=== PATIENT | female | born 1990 | race African-American/Black ===

== ENCOUNTER 2018-03-10 20:25 | Emergency (ER) | payer BC, OTHER ==
[2018-03-10 20:35] VITALS: BP 136/96; PULSE 95; TEMP 99; BMI 34.0
--- NOTE | 2018-03-10 23:47 | PDOC ---
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 Patient states she has a pleuritic midsternal nonradiating intermittent chest discomfort for the past 6 weeks described as 3/10 achy nonradiating intermittent discomfort which is exacerbated on deep inspiration and touch. The pain is alleviated at rest. Patient denies nausea, vomiting, fever/chills, extremity numbness or tingling sensation, shortness of breath, back pain, neck pains, abdominal discomfort. Patient also complains of close bumpy sores to the back of her tongue with pain intermittently x5d. Her last complaint is malodorous, pruritic vaginal discharge x2d. Patient states she is sexually active with 5 different men presently and wishes to get tested for gonorrhea/chlamydia. Patient was informed the urine GC chlamydia does not results until 3-4 days from now and she can get treated with Rocephin and Zithromax but refused. Otherwise patient denies headache, dizziness, lightheadedness, visual disturbance, dental pain. Past History - Past Medical History Allergies/Adverse Reactions: Allergies Allergy/AdvReac Type Severity Reaction Status Date / Time No Known Allergies Allergy Verified 03/10/18 20:29 Home Medications: Ambulatory Orders Mag Hydrox/Alh/Smc/Dpha/Lido [Magic Mouthwash *Sjr Formula* -] 5 ml MM Q6HPO # 60 mouthwash 03/11/18 metroNIDAZOLE 0.75% VAG. GEL [Metrogel 0.75% *Vaginal Gel* -] 1 applic VG HS #1 tube 03/11/18 - Suicide/Smoking/Psychosocial Hx Smoking History: Current some day smoker Have you smoked in the past 12 months: Yes Number of Cigarettes Smoked Daily: 2 Information on smoking cessation initiated: No Hx Alcohol Use: No Drug/Substance Use Hx: No Review of Systems - Review of Systems Able to Perform ROS?: Yes Comments:: 03/11/18 02:26 CONSTITUTIONAL: Absent: fever, chills, diaphoresis, generalized weakness, malaise, loss of appetite HEENT: +sores to tongue Absent: rhinorrhea, nasal congestion, throat pain, throat swelling, difficulty swallowing, mouth swelling, ear pain, eye pain, visual Changes CARDIOVASCULAR: Absent: chest pain, loss of consciousness, palpitations, irregular heart rate, peripheral edema RESPIRATORY: Absent: cough, shortness of breath, dyspnea with exertion, orthopnea, wheezing, stridor, hemoptysis GASTROINTESTINAL: Absent: abdominal pain, abdominal distension, nausea, vomiting, diarrhea, constipation, melena, hematochezia GENITOURINARY: Absent: dysuria, frequency, urgency, hesitancy, hematuria, flank pain, genital pain MUSCULOSKELETAL: Absent: myalgia, arthralgia, joint swelling SKIN: Absent: rash, itching, pallor HEMATOLOGIC/IMMUNOLOGIC: Absent: easy bleeding, easy bruising, lymphadenopathy, frequent infections ENDOCRINE: Absent: unexplained weight gain, unexplained weight loss, heat intolerance, cold intolerance NEUROLOGIC: Absent: headache, focal weakness or paresthesias, dizziness, unsteady gait, seizure, mental status changes, bladder or bowel incontinence PSYCHIATRIC: Absent: anxiety, depression, suicidal or homicidal ideation, hallucinations. Pelvic: External genitalia normal without lesions. Vaginal vault thin/grayish white/malodorous discharge Cervix is long and closed. No cervical motion tenderness. Uterus is nontender and normal in size. Adnexa are nontender and without masses. Is the patient limited Azeri proficient: No *Physical Exam - Vital Signs Last Vital Signs Temp Pulse Resp BP Pulse Ox 99.0 F 95 H 18 136/96 100 03/10/18 20:29 03/10/18 20:29 03/10/18 20:29 03/10/18 20:29 03/10/18 20:29 ED Treatment Course - LABORATORY CBC & Chemistry Diagram: 03/10/18 23:47 03/10/18 23:47 - ADDITIONAL ORDERS Additional order review: Laboratory Results 03/10/18 03/10/18 03/10/18 23:57 23:47 23:47 Sodium 140 Potassium 4.4 Chloride 102 Carbon Dioxide 30 Anion Gap 8 BUN 13 Creatinine 0.9 Creat Clearance w eGFR > 60 Random Glucose 85 Calcium 9.2 Total Bilirubin 0.3 D AST 23 ALT 23 Alkaline Phosphatase 68 Creatine Kinase 254 H Troponin I < 0.02 Total Protein 7.4 Albumin 4.3 Urine Color Yellow Urine Appearance Clear Urine pH 5.0 Ur Specific [place] 1.028 Urine Protein Negative Urine Glucose (UA) Negative Urine Ketones Negative Urine Blood Negative Urine Nitrite Negative Urine Bilirubin Negative Urine Urobilinogen 2.0 H Ur Leukocyte Esterase Negative Urine HCG, Qual Negative 03/10/18 23:47 RBC 4.48 MCV 88.9 MCHC 33.9 RDW 12.6 MPV 7.4 L Neutrophils % 61.0 Lymphocytes % 24.6 Monocytes % 10.2 Eosinophils % 3.9 Basophils % 0.3 *DC/Admit/Observation/Transfer Diagnosis at time of Disposition: Atypical chest pain, Bacterial vaginosis, Sore in mouth - Discharge Dispostion Disposition: HOME Condition at time of disposition: Stable Admit: No - Prescriptions Prescriptions: Mag Hydrox/Alh/Smc/Dpha/Lido [Magic Mouthwash *Sjr Formula* -] 5 ml MM Q6HPO # 60 mouthwash metroNIDAZOLE 0.75% VAG. GEL [Metrogel 0.75% *Vaginal Gel* -] 1 applic VG HS #1 tube - Referrals Referrals: Jose Spence MD [Staff Physician] - Najma Morton MD [Staff Physician] - Harvinder Haley MD [Staff Physician] - - Patient Instructions Printed Discharge Instructions: DI for Bacterial Vaginosis Additional Instructions: Follow-up with the foundation stage teacher for the chest discomfort/ Dr. Spence Follow-up with infectious disease for the sores in your mouth/ Dr. Haley Follow-up with the qa manager/Dr. Rice Rx: Magic mouthwash 5 mL's every 6 hours Rx: Vaginal MetroGel as prescribed Return back to the emergency department for severe/persistent or worsening symptoms - Post Discharge Activity
[2018-03-11 00:27] LABS: BASO % 0.3 % (0-2.0); EOS % 3.9 % (0-4.5); HEMATOCRIT 39.8 % (32.4-45.2); HEMOGLOBIN 13.5 GM/dL (10.7-15.3); LYMPH % 24.6 % (8-40); MCH 30.2 pg (25.7-33.7); MCHC 33.9 g/dl (32.0-36.0); MEAN CELL VOLUME 88.9 fl (80-96); MEAN PLT VOLUME 7.4 fl (7.5-11.1); MONO % 10.2 % (3.8-10.2); PLATELET COUNT 272 K/MM3 (134-434); RBC 4.48 M/mm3 (3.60-5.2); RDW 12.6 % (11.6-15.6); WHITE BLOOD COUNT 8.5 K/mm3 (4.0-10.0)
[2018-03-11 00:46] LABS: URINE APPEARANCE CLEAR; URINE BILIRUBIN NEGATIVE (<2.0 mg/dL); URINE BLOOD NEGATIVE (NEGATIVE); URINE COLOR YELLOW; URINE GLUCOSE (UA) NEGATIVE (NEGATIVE); URINE KETONE NEGATIVE (NEGATIVE); URINE LEUK ESTERASE NEGATIVE (NEGATIVE); URINE NITRITE NEGATIVE (NEGATIVE); URINE PROTEIN NEGATIVE (NEGATIVE)
[2018-03-11 01:01] LABS: HCG,QUALITATIVE URINE NEGATIVE
[2018-03-11 01:04] LABS: ALBUMIN 4.3 g/dl (3.4-5.0); ANION GAP 8 (8-16); BILIRUBIN,TOTAL 0.3 mg/dL (0.2-1.0); BLOOD UREA NITROGEN 13 mg/dL (7-18); CALCIUM 9.2 mg/dL (8.5-10.1); CHLORIDE 102 mmol/L (98-107); CO2 30 mmol/L (21-32); CREATININE 0.9 mg/dL (0.55-1.02); GLUCOSE,RANDOM 85 mg/dL (74-106); POTASSIUM 4.4 mmol/L (3.5-5.1); SGOT/AST 23 U/L (15-37); SGPT/ALT 23 U/L (12-78); SODIUM 140 mmol/L (136-145); TOT PROT 7.4 g/dl (6.4-8.2)
[2018-03-11 01:05] LABS: ALK PHOS 68 U/L (45-117)
[2018-03-11] MEDS ORDERED: MAG HYDROX/ALH/SMC/DPHA/LIDO 240 ML MOUTHWASH MM SCH (06:00)
--- NOTE | 2018-03-11 13:35 | EKG ---
Test Reason : Blood Pressure : / mmHG Vent. Rate : 083 BPM Atrial Rate : 083 BPM P-R Int : 140 ms QRS Dur : 080 ms QT Int : 354 ms P-R-T Axes : 045 027 027 degrees QTc Int : 415 ms NORMAL SINUS RHYTHM WITH SINUS ARRHYTHMIA NORMAL ECG NO PREVIOUS ECGS AVAILABLE Confirmed by MD Virgilio, Shawn ([id number]) on 03/11/2018 1:35:19 PM Referred By: Confirmed By:Shawn Poole MD
== END 2018-03-11 01:43 | disposition home or self-care (01) ==
LOC: JER 20:25 → JERFT 20:25
DX: L29.2 Pruritus vulvae (principal); R07.89 Other chest pain; N76.0 Acute vaginitis; B96.89 Other specified bacterial agents as the cause of diseases classified elsewhere; F17.210 Nicotine dependence, cigarettes, uncomplicated
CPT/HCPCS: 36415; 80053; 81003; 82550; 82553; 84484; 84703; 85025; 87491; 87591; 93005; 93010; 99281-25

== ENCOUNTER 2018-07-07 23:34 | Emergency (ER) | payer OTHER ==
[2018-07-07 23:37] VITALS: TEMP 98; BMI 32.5
--- NOTE | 2018-07-08 00:16 | PDOC ---
History of Present Illness - General Chief Complaint: Pain Stated Complaint: PELVIC PAIN Time Seen by Provider: 07/08/18 00:07 History Source: Patient - History of Present Illness Initial Comments: 07/08/18 00:19 Patient is a 27 year old female with a PMH of gastric sleeve who presents to our ED c/o 3 week h/o "pelvic pain." Pain is throbbing, 4/10, constant, with no identifiable triggering or relieving factors. Endorses dysuria w/o hematuria. Denies fevers, vomiting or vaginal bleeding. States LMP was. Is sexually active with multiple partners, inconsistent condom use and states she is unsure if she is . Notes she was evaluated by her news agent a few weeks previous at which time she was diagnosed with bacterial vaginosis and given a prescription for Metronizadole. Patient denies chest pain, shortness of breath. Patient denies cough, sore throat, headache. Patient denies sick contacts, recent travel. NKDA Surgical: gastric sleeve Social: 2 cigarettes daily, no current ETOH -previous h/o of ETOH abuse, attends [facility], denies other toxic habits PMD: None - will refer to resident clinic OB-Stress Engineer: Dr. Sinha Past History - Past Medical History Allergies/Adverse Reactions: Allergies Allergy/AdvReac Type Severity Reaction Status Date / Time No Known Allergies Allergy Verified 07/07/18 23:37 Home Medications: Ambulatory Orders Mag Hydrox/Alh/Smc/Dpha/Lido [Magic Mouthwash *Sjr Formula* -] 5 ml MM Q6HPO # 60 mouthwash 03/11/18 metroNIDAZOLE 0.75% VAG. GEL [Metrogel 0.75% *Vaginal Gel* -] 1 applic VG HS #1 tube 03/11/18 COPD: No - Suicide/Smoking/Psychosocial Hx Smoking History: Current some day smoker Have you smoked in the past 12 months: Yes Number of Cigarettes Smoked Daily: 3 Information on smoking cessation initiated: Yes 'Breaking Loose' booklet given: 07/07/18 Hx Alcohol Use: No Drug/Substance Use Hx: No Review of Systems - Review of Systems Constitutional: No: Chills, Fever Respiratory: No: Cough, Shortness of Breath Cardiac (ROS): No: Chest Pain, Lightheadedness, Palpitations, Syncope ABD/GI: No: Constipated, Diarrhea, Nausea, Vomiting : Yes: Dysuria. No: Burning *Physical Exam - Vital Signs Last Vital Signs Temp Pulse Resp BP Pulse Ox 98.0 F 92 H 18 142/83 100 07/07/18 23:35 07/07/18 23:35 07/07/18 23:35 07/07/18 23:35 07/07/18 23:35 - Physical Exam General Appearance: Yes: Nourished, Appropriately Dressed HEENT: positive: Normal Voice Neck: positive: Trachea midline, Supple Respiratory/Chest: positive: Lungs Clear, Normal Breath Sounds Cardiovascular: positive: S1, S2. negative: Edema, JVD Female Pelvic Exam: positive: cervical os closed. negative: lesions, adnexal tenderness, vaginal bleeding Gastrointestinal/Abdominal: negative: Distended, Guarding, Rebound, Tenderness, Hernia, Mass Musculoskeletal: negative: CVA Tenderness (R), CVA Tenderness (L) Integumentary: positive: Normal Color, Dry, Warm Neurologic: positive: Fully Oriented, Alert ED Treatment Course - LABORATORY CBC & Chemistry Diagram: 07/08/18 01:30 07/08/18 01:30 Medical Decision Making - Medical Decision Making 07/08/18 00:23 27 year old female with pelvic pain. H/o bacterial vaginosis and multiple sexual partners with inconsistent condom use. Patient consents to HIV testing and requests STI testing. Will perform pelvic exam and obtain UA/UC as well as urine . Reassess. 07/08/18 02:42 Urine (-) UA clean Pelvic exam shows closed cervical os, some discharge - likely physiologic. Non- palpable adenxa on bimanual exam. HIV negative Repeat VS unremarkable. Will discharge home with return precautions, instruction to finish previously prescribed antibiotics and referral to PMD. I discussed the physical exam findings, ancillary test results and final diagnoses with the patient. I answered all of the patient's questions. The patient was satisfied with the care received and felt comfortable with the discharge plan and treatment plan. The patient will return to the Emergency Department with any new, persistent or worsening symptoms. *DC/Admit/Observation/Transfer Diagnosis at time of Disposition: Pelvic pain - Discharge Dispostion Disposition: HOME Condition at time of disposition: Good Decision to Admit order: No - Referrals Referrals: Berlin Wang MD [Staff Physician] - - Patient Instructions Printed Discharge Instructions: Let's Talk About Sex (and STIs) Additional Instructions: Complete the entire prescribed antibiotic that you are currently taking. Please call the office and make an appointment with Dr. Felipe Slade to establish primary care. Your HIV test was negative. The results of your gonorrhea and chlamydia tests will be available in 72 hours. Please call the Emergency Department for results. You will be contacted if there is a positive result. You should you condoms consistently for sexual intercourse. Return to the Emergency Department for any new/worsening/concerning symptoms. - Post Discharge Activity
[2018-07-08 01:54] LABS: BASO % 0.5 % (0-2.0); EOS % 2.6 % (0-4.5); HEMATOCRIT 41.9 % (32.4-45.2); HEMOGLOBIN 14.3 GM/dL (10.7-15.3); LYMPH % 23.5 % (8-40); MCH 30.4 pg (25.7-33.7); MCHC 34.1 g/dl (32.0-36.0); MEAN CELL VOLUME 89.2 fl (80-96); MEAN PLT VOLUME 7.3 fl (7.5-11.1); MONO % 14.5 % (3.8-10.2); NEUT % 58.9 % (42.8-82.8); PLATELET COUNT 284 K/MM3 (134-434); RDW 13.1 % (11.6-15.6); WHITE BLOOD COUNT 5.1 K/mm3 (4.0-10.0)
[2018-07-08 02:05] LABS: URINE APPEARANCE CLEAR; URINE COLOR AMBER; URINE GLUCOSE (UA) NEGATIVE (NEGATIVE); URINE KETONE TRACE (NEGATIVE); URINE LEUK ESTERASE TRACE (NEGATIVE); URINE NITRITE NEGATIVE (NEGATIVE); URINE UROBILINOGEN 4.0 E.U/dl mg/dL (0.2-1.0)
[2018-07-08 02:10] LABS: HCG,QUALITATIVE URINE NEGATIVE
[2018-07-08 02:11] LABS: URINE PROTEIN 1+ (NEGATIVE)
[2018-07-08 02:12] LABS: EPI CELLS FEW /HPF (FEW); URINE MUCUS MANY
[2018-07-08 02:14] LABS: ALBUMIN 4.2 g/dl (3.4-5.0); ANION GAP 4 (8-16); BILIRUBIN,TOTAL 0.3 mg/dL (0.2-1.0); BLOOD UREA NITROGEN 10 mg/dL (7-18); CALCIUM 9.5 mg/dL (8.5-10.1); CHLORIDE 102 mmol/L (98-107); CO2 35 mmol/L (21-32); CREATININE 0.9 mg/dL (0.55-1.02); GLUCOSE,RANDOM 91 mg/dL (74-106); POTASSIUM 4.1 mmol/L (3.5-5.1); SGOT/AST 34 U/L (15-37); SGPT/ALT 37 U/L (12-78); SODIUM 141 mmol/L (136-145); TOT PROT 7.5 g/dl (6.4-8.2)
[2018-07-08 02:15] LABS: ALK PHOS 76 U/L (45-117)
[2018-07-08 03:54] VITALS: BP 119/84; PULSE 67
--- NOTE | 2018-07-08 04:19 | PDOC ---
Attending Attestation - Resident Resident Name: Nancy Up - ED Attending Attestation I have performed the following: I have examined & evaluated the patient, The case was reviewed & discussed with the resident, I agree w/resident's findings & plan, Exceptions are as noted - Medical Decision Making 07/08/18 04:18 27yoF presents w/ complaint of burning sensation to skin in suprapubic area. Exam completely WNL. Also requesting STI testing. - hiv/gc/chlam - DC. <Vera Marino - Last Filed: 07/08/18 04:18> - HPI HPI: 07/08/18 04:29 The patient is a 27 year old female with a past medical history of gastric sleeve who presents to the emergency department for evaluation of skin burning. The patient reports a 3 week history of discomfort, described as burning to skin in suprapubic area. She reports associated dysuria, but denies hematuria. Patient states it feels like the skin near her belly has an irritated and itching sensation. She states she is sexually active with multiple partners and admits intermittent use of condoms. The patient denies chest pain, shortness of breath, headache, and dizziness. Denies fever, chills, nausea, vomiting, diarrhea, and constipation. Allergies: NKDA Social History: Current some day smoker. No reported alcohol, cigarette, or drug use. Surgical History: Denies. SENIOR SOFTWARE ARCHITECT: Dr. Golden - Physicial Exam PE: NAD EOMI, IDRIS MMM, OP WNL NCAT, no midline cervical tenderness RRR, nl s1/s2, no m/r/g CTABL, no w/r/r Soft, NTND No edema, WWP, no rash Pelvic: deferred to resident Neuro grossly intact, gait WNL, moving all 4 A&O x 3, mood/affect WNL. <Richelle Gilbert - Last Filed: 07/08/18 04:29> Attestations - Attestations Documentation prepared by Richelle Gilbert, acting as center medical and lab director for Vera Marino MD. <Richelle Gilbert - Last Filed: 07/08/18 04:29>
== END 2018-07-08 03:56 | disposition home or self-care (01) ==
LOC: JER 23:34
DX: R10.2 Pelvic and perineal pain (principal); Z11.3 Encounter for screening for infections with a predominantly sexual mode of transmission; Z98.84 Bariatric surgery status; F17.210 Nicotine dependence, cigarettes, uncomplicated
CPT/HCPCS: 36415; 80053; 81003; 81015; 84703; 85025; 87086; 87389; 87491; 87591; 99283-25

== ENCOUNTER 2019-01-02 21:19 | Emergency (ER) | payer OTHER ==
--- NOTE | 2019-01-02 21:33 | PDOC ---
Rapid Medical Evaluation Time Seen by Provider: 01/02/19 21:30 Medical Evaluation: Allergies Allergy/AdvReac Type Severity Reaction Status Date / Time No Known Allergies Allergy Verified 07/12/18 11:47 01/02/19 21:31 Pt c/o: pelvic pain x 2 days, whitish vag discharge , burning w/ urination Pt on brief exam: vss, mid suprapubic pain Pt ordered for: ua, u cx, hcg urine Pt to proceed to the ED Discharge Disposition - Diagnosis Pelvic pain - Referrals - Patient Instructions - Post Discharge Activity
[2019-01-02 21:35] VITALS: BP 136/97; PULSE 82; TEMP 98.5; BMI 33.0
[2019-01-02 22:02] LABS: URINE APPEARANCE CLEAR; URINE BILIRUBIN NEGATIVE (<2.0 mg/dL); URINE COLOR YELLOW; URINE GLUCOSE (UA) NEGATIVE (NEGATIVE); URINE KETONE NEGATIVE (NEGATIVE); URINE LEUK ESTERASE NEGATIVE (NEGATIVE); URINE NITRITE NEGATIVE (NEGATIVE); URINE PROTEIN NEGATIVE (NEGATIVE); URINE UROBILINOGEN 4.0 E.U/dl mg/dL (0.2-1.0)
[2019-01-02 22:03] LABS: HCG,QUALITATIVE URINE Negative
--- NOTE | 2019-01-03 00:16 | PDOC ---
History of Present Illness - General Chief Complaint: Vaginal Sxs Stated Complaint: PELVIV PAIN Time Seen by Provider: 01/02/19 21:30 History Source: Patient Exam Limitations: No Limitations - History of Present Illness Travel History: No Initial Comments: 01/03/19 02:22 Best Contact: PCP:None Pmhx: 0 Pshx: 2014: Gastric sleeve Allergies:NKDA FH:0 Social Hx: Cigarettes/ 0 Alcohol/ social Drugs/0 LMP: 12/06/2017 28-year-old female presents to the emergency department complaining of a thin grayish/greenish vaginal discharge with fishy odor and slight burn upon urination 2 days without fever, chills, nausea/vomiting, chest pain, shortness of breath, abdominal pains, flank pains, urinary frequency/urgency/hesitancy, hematuria. Past History - Past Medical History Allergies/Adverse Reactions: Allergies Allergy/AdvReac Type Severity Reaction Status Date / Time No Known Allergies Allergy Verified 01/03/19 00:46 Home Medications: Ambulatory Orders Azithromycin [Zithromax 1gm Nikhil -] 1 gm PO ONCE #1 packet 07/15/18 metroNIDAZOLE 0.75% VAG. GEL [Metrogel 0.75% Vaginal Gel -] 1 applic VG HS #1 tube 01/03/19 COPD: No - Surgical History Abdominal Surgery: Yes (GASTRIC SLEEVE) - Suicide/Smoking/Psychosocial Hx Smoking History: Current some day smoker Have you smoked in the past 12 months: Yes Number of Cigarettes Smoked Daily: 3 Information on smoking cessation initiated: No 'Breaking Loose' booklet given: 07/12/18 Hx Alcohol Use: Yes (Social) Drug/Substance Use Hx: No Substance Use Type: None Abd/GI Specific PMHX - Complaint Specific PMHX Colitis: No Diverticulitis: No Gall Bladder Disease: No GERD: No Hepatitis: No Irritable Bowel Synd (IBS): No Pancreatitis: No GI Ulcer Disease: No Review of Systems - Review of Systems Able to Perform ROS?: Yes Comments:: 01/03/19 02:18 CONSTITUTIONAL: Absent: fever, chills, diaphoresis, generalized weakness, malaise, loss of appetite HEENT: Absent: rhinorrhea, nasal congestion, throat pain, throat swelling, difficulty swallowing, mouth swelling, ear pain, eye pain, visual Changes CARDIOVASCULAR: Absent: chest pain, loss of consciousness, palpitations, irregular heart rate, peripheral edema RESPIRATORY: Absent: cough, shortness of breath, dyspnea with exertion, orthopnea, wheezing, stridor, hemoptysis GASTROINTESTINAL: Absent: abdominal pain, abdominal distension, nausea, vomiting, diarrhea, constipation, melena, hematochezia GENITOURINARY: vaginal thin tran/greenish d/c with slight burn upon urination Absent: dysuria, frequency, urgency, hesitancy, hematuria, flank pain, genital pain MUSCULOSKELETAL: Absent: myalgia, arthralgia, joint swelling SKIN: Absent: rash, itching, pallor HEMATOLOGIC/IMMUNOLOGIC: Absent: easy bleeding, easy bruising, lymphadenopathy, frequent infections ENDOCRINE: Absent: unexplained weight gain, unexplained weight loss, heat intolerance, cold intolerance Is the patient limited Latvian proficient: No *Physical Exam - Vital Signs Last Vital Signs Temp Pulse Resp BP Pulse Ox 98.5 F 82 20 136/97 100 01/02/19 21:31 01/02/19 21:31 01/02/19 21:31 01/02/19 21:31 01/02/19 21:31 - Physical Exam Comments: 01/03/19 02:18 GENERAL: Well developed, well nourished. Awake and alert. No acute distress. HEENT: Normocephalic, atraumatic. PERRLA, EOMI. No conjunctival pallor. Sclera are non- icteric. Moist mucous membranes. Oropharynx is clear. NECK: Supple. Full ROM. No JVD. Carotid pulses 2+ and symmetric, without bruits. No thyromegaly. No lymphadenopathy. CARDIOVASCULAR: Regular rate and rhythm. No murmurs, rubs, or gallops. Distal pulses are 2+ and symmetric. PULMONARY: No evidence of respiratory distress. Lungs clear to auscultation bilaterally. No wheezing, rales or rhonchi. ABDOMINAL: Soft. Non-tender. Non-distended. No rebound or guarding. No organomegaly. Normoactive bowel sounds. MUSCULOSKELETAL Normal range of motion at all joints. No bony deformities or tenderness. No CVA tenderness. EXTREMITIES: No cyanosis. No clubbing. No edema. No calf tenderness. SKIN: Warm and dry. Normal capillary refill. No rashes. No jaundice. NEUROLOGICAL: Alert, awake, appropriate. Cranial nerves 2-12 intact. No deficits to light touch and temperature in face, upper extremities and lower extremities. No motor deficits in the in face, upper extremities and lower extremities. Normoreflexic in the upper and lower extremities. Normal speech. Toes are down- going bilaterally. Gait is normal without ataxia. Pelvic: External genitalia normal without lesions. Vaginal vault: think greenish d/c +fishy odor Cervix is long and closed. No cervical motion tenderness. Uterus is nontender and normal in size. Adnexa are nontender and without masses. Moderate Sedation - Procedure Monitoring Vital Signs: Procedure Monitoring Vital Signs Temperature 98.5 F 01/02/19 21:31 Pulse Rate 82 01/02/19 21:31 Respiratory Rate 20 01/02/19 21:31 Blood Pressure 136/97 01/02/19 21:31 O2 Sat by Pulse Oximetry (%) 100 01/02/19 21:31 ED Treatment Course - ADDITIONAL ORDERS Additional order review: Laboratory Results 01/02/19 21:45 Urine Color Yellow Urine Appearance Clear Urine pH 6.0 Ur Specific [place] 1.026 Urine Protein Negative Urine Glucose (UA) Negative Urine Ketones Negative Urine Blood Negative Urine Nitrite Negative Urine Bilirubin Negative Urine Urobilinogen 4.0 e.u/dl H Ur Leukocyte Esterase Negative Urine HCG, Qual Negative *DC/Admit/Observation/Transfer Diagnosis at time of Disposition: Pelvic pain, Bacterial vaginosis - Discharge Dispostion Disposition: HOME Condition at time of disposition: Stable Decision to Admit order: No - Prescriptions Prescriptions: metroNIDAZOLE 0.75% VAG. GEL [Metrogel 0.75% Vaginal Gel -] 1 applic VG HS #1 tube - Referrals Referrals: Marcos Hernandez MD [Staff Physician] - - Patient Instructions Printed Discharge Instructions: DI for Bacterial Vaginosis Additional Instructions: Pelvic rest Follow with your harp action assembler this week Return back to the ER for severe/persistent or worsening symptoms - Post Discharge Activity
== END 2019-01-03 00:49 | disposition home or self-care (01) ==
LOC: JER 21:19 → JERFT 21:19 → JER 01-03 00:49
DX: N76.0 Acute vaginitis (principal); R10.2 Pelvic and perineal pain; F17.210 Nicotine dependence, cigarettes, uncomplicated; Z98.84 Bariatric surgery status
CPT/HCPCS: 81003; 84703; 87086; 99282-25

== ENCOUNTER 2019-08-05 03:59 | Emergency (ER) | payer SELFPAY ==
--- NOTE | 2019-08-05 05:26 | PDOC ---
Medical Decision Making - Medical Decision Making 08/05/19 05:26 Patient seen by the advanced practice provider under my direct supervision. Ancillary testing reviewed as necessary. I agree with plan as outlined by the advanced practice provider. *DC/Admit/Observation/Transfer Diagnosis at time of Disposition: Neck pain Head injury Qualifiers: Encounter type: initial encounter Qualified Code(s): S09.90XA - Unspecified injury of head, initial encounter Arm pain Qualifiers: Laterality: bilateral Qualified Code(s): M79.601 - Pain in right arm - Discharge Dispostion Disposition: HOME Condition at time of disposition: Improved - Referrals - Patient Instructions Printed Discharge Instructions: Concussion, DI for Closed Head Injury Additional Instructions: CAT scan of your head and neck were normal. Take Tylenol or Motrin for pain as needed. You were given concussion precautions, which includes resting and no exertional activities for the next several days. If symptoms worsen, return to the ED, otherwise follow-up with your PMD - Post Discharge Activity Forms/Work/School Notes: Back to Work
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
[2019-08-05] MEDS ORDERED: DIPHTH,PERTUSS(ACELL),TET VAC 0.5 ML VIAL IM ONE (05:32)
[2019-08-05 05:36] VITALS: BMI 27.3
[2019-08-05] MEDS ORDERED: DIPHTH,PERTUSS(ACELL),TET 0.5 ML DISP.SYRIN IM ONE (06:03)
[2019-08-05] MEDS ORDERED: KETOROLAC TROMETHAMINE 60 MG/2 ML VIAL IM ONE (07:30)
[2019-08-05] MEDS ORDERED: KETOROLAC TROMETHAMINE 60 MG/2 ML VIAL ONE (07:41)
--- NOTE | 2019-08-05 08:12 | PDOC ---
*Physical Exam - Vital Signs Last Vital Signs Temp Pulse Resp BP Pulse Ox 98.1 F 67 17 131/85 100 08/05/19 04:00 08/05/19 04:00 08/05/19 04:00 08/05/19 04:00 08/05/19 04:00 - Physical Exam General Appearance: Yes: Appropriately Dressed. No: Apparent Distress HEENT: positive: Normal Voice Neck: positive: Supple. negative: Tender Respiratory/Chest: negative: Respiratory Distress Extremity: positive: Normal Inspection, Tender (diffusely throughout b/l UEs, no swelling or deformity, FROMI, NVI) Integumentary: positive: Dry, Warm, Other (abrasion to mid forehead) Neurologic: positive: Fully Oriented, Alert, Normal Mood/Affect, Motor Strength 04/05 ED Treatment Course - ADDITIONAL ORDERS Additional order review: Laboratory Results 08/05/19 06:00 Urine HCG, Qual Negative - Medications Given in the ED: ED Medications Discontinued Medications Generic Name Dose Route Start Last Admin Trade Name Freq PRN Reason Stop Dose Admin Diphtheria/Tetanus/Acell Pertussis 0.5 ml 08/05/19 05:32 08/05/19 06:05 Adacel Adolescent/Adult - IM 08/05/19 05:33 0.5 ml .ONCE ONE Administration Ketorolac Tromethamine 60 mg 08/05/19 07:30 08/05/19 07:48 Toradol Injection - IM 08/05/19 07:31 60 mg ONCE ONE Administration Medical Decision Making - Medical Decision Making 08/05/19 08:08 Signed out to me at 7 AM Patient is a 28-year-old female who presented with neck and bilateral upper extremity pain and tingling s/p fall in the setting of intoxication 3 days ago. Patient states she fell face down, but denies any LOC. Also complaining of vague headache. No dizziness, nausea, vomiting or visual changes. Per prior team, C-Collar placed and CT read pending. On reassessment now, was able to clear C-spine as no midline tenderness. Pain control in progress. Will follow- up on CT read 08/05/19 08:45 CT head and cspine neg. pt improved w/ meds. Dc w/ concussion precautions *DC/Admit/Observation/Transfer Diagnosis at time of Disposition: Neck pain Head injury Qualifiers: Encounter type: initial encounter Qualified Code(s): S09.90XA - Unspecified injury of head, initial encounter Arm pain Qualifiers: Laterality: bilateral Qualified Code(s): M79.601 - Pain in right arm; M79.602 - Pain in left arm - Discharge Dispostion Disposition: HOME Condition at time of disposition: Improved - Referrals - Patient Instructions Printed Discharge Instructions: DI for Closed Head Injury, Concussion Additional Instructions: CAT scan of your head and neck were normal. Take Tylenol or Motrin for pain as needed. You were given concussion precautions, which includes resting and no exertional activities for the next several days. If symptoms worsen, return to the ED, otherwise follow-up with your PMD - Post Discharge Activity Forms/Work/School Notes: Back to Work
[2019-08-05 09:08] VITALS: BP 128/74; PULSE 60; TEMP 98
== END 2019-08-05 09:06 | disposition home or self-care (01) ==
LOC: JER 03:59
PROC: 3E0234Z Introduction of Serum, Toxoid and Vaccine into Muscle, Percutaneous Approach (ICD-10-PCS; principal; 2019-08-05)
PROC: 3E0234Z Introduction of Serum, Toxoid and Vaccine into Muscle, Percutaneous Approach (ICD-10-PCS; 2019-08-05)
PROC: 3E0233Z Introduction of Anti-inflammatory into Muscle, Percutaneous Approach (ICD-10-PCS; 2019-08-05)
DX: M54.2 Cervicalgia (principal); S09.90XA Unspecified injury of head, initial encounter; W18.39XA Other fall on same level, initial encounter; Y93.89 Activity, other specified; Y92.89 Other specified places as the place of occurrence of the external cause; F17.210 Nicotine dependence, cigarettes, uncomplicated; Z98.84 Bariatric surgery status
CPT/HCPCS: 70450-TC; 72125-TC; 84703; 99282-25

== ENCOUNTER 2020-09-04 17:48 | Emergency (ER) | payer OTHER ==
[2020-09-04 18:00] VITALS: BP 141/88; PULSE 123; BMI 30.2
--- OUTSIDE RECORDS SUMMARY | 2020-09-04 18:14 | XMS ---
:1990 [facility] Providers Name Role Phone DEYSI TIPTON MD Unavailable Unavailable AXEL Unavailable Unavailable MD PRITI Unavailable Unavailable Nome, C Unavailable Unavailable [place], C Unavailable Unavailable Eric, C Unavailable Unavailable [place], C Unavailable Unavailable Re-disclosure Warning The records that you are about to access may contain information from federally- assisted alcohol or drug abuse programs. If such information is present, then the following federally mandated warning applies: This information has been disclosed to you from records protected by federal confidentiality rules (42 CFR part 2). The federal rules prohibit you from making any further disclosure of this information unless further disclosure is expressly permitted by the written consent of the person to whom it pertains or as otherwise permitted by 42 CFR part 2. A general authorization for the release of medical or other information is NOT sufficient for this purpose. The Federal rules restrict any use of the information to criminally investigate or prosecute any alcohol or drug abuse patient.The records that you are about to access may contain highly sensitive health information, the redisclosure of which is protected by Article 27-F of the [facility] Public Health law. If you continue you may haveaccess to information: Regarding HIV / AIDS; Provided by facilities licensed or operated by the [facility] Office of Mental Health; or Provided by the [facility] Office for People With Developmental Disabilities. If such information is present, then the following [facility] mandated warning applies: This information has been disclosed to you from confidential records which are protected by state law. State law prohibits you from making any further disclosure of this information without the specific written consent of the person to whom it pertains, or as otherwise permitted by law. Any unauthorized further disclosure in violation of state law may result in a fine or senior care sentence or both. A general authorization for the release of medical or other information is NOT sufficient authorization for further disclosure. Encounters Encounter Providers Location Date Indications Data Source(s ) Outpatient Attender: DEYSI [facility] 08/28/2019 Nando RINCONANAdmitter: LUCINDA 01:51:00 PM marcell BARENE EDT Admission cancelled. Disregard status an d admitted date. Outpatient [facility] 08/21/2019 11:17:00 AM EDT - [address] [place] [id number] 03:12:00 PM EDT Patient discharged. Inpatient Attender: SHERYL [facility] 10:36:00 PM EDT Patient admitted. Outpatient [facility] 08/17/2019 02:01:00 PM EDT - [address] [place] [id number] 11:16:00 AM EDT Patient discharged. Medications Medication Brand Start Product Dose Route Administrative Pharmacy [facility] Indications Reaction Description Data Name Date Form Instructions Instructions Source(s) quetiapine SEROqu ORAL complet SEROque l - [facility] 50 MG Oral el 2018 Table ed 50 MG ORAL Vi ncents Tablet 50 MG 12:00: t [facility] Hospital [Seroquel] ORAL 00 AM Tablet EDT Escitalopra Lexapr ORAL complet Lexapr o - 10 [facility] 10 MG o - 10 2018 Table ed MG ORAL [facility] Oral [facility] 12:00: [facility] [Lexapro] ORAL 00 AM Tablet EDT Disulfiram Antabu ORAL complet Antabus e - [facility] 500 MG Oral se - 2018 [facility] 500 MG [facility] Tablet 500 MG 12:00: [facility] [Antabuse] ORAL 00 AM Tablet EDT Insurance Providers Payer name Policy type Policy ID Covered Covered republican's Policy P renea / Coverage republican ID relationship to Lin Inf ormation type lin [facility] [id number] PLANS SELF PAY 0 Self 0 SHERRARD (PS) [id number] Self [id number] [facility] [id number] Self [id number] PLAN [facility] [id number] [place] [id number] PLANS SELF PAY 00 Self 00 [facility] [id number] Self [id number] PLAN SELF PAY SP INSURANCE G[employer] PPO [id number] SP [id number] Problems, Conditions, and Diagnoses Code Display Name Description Problem Type Effective Dates Data Source(s) 85206347 Alcohol Alcohol Complaint 12/02/2015 [facility] dependence dependence 12:00:00 PM EST Hospital (disorder) [id number] Alcohol Alcohol Complaint 12/02/2015 [facility] dependence dependence 12:00:00 PM EST Hospital (disorder) 328194217 Recurrent major Recurrent major Complaint 12/02/1999 [facility] depressive depressive 12:00:00 PM EST Hospital episodes, episodes, moderate moderate (disorder) 666035446 Recurrent major Recurrent major Complaint 12/02/1999 [facility] depressive depressive 12:00:00 PM EST Hospital episodes, episodes, moderate moderate (disorder) F33.1 Major depressive Major depressive Diagnosis 08/21/2019 [facility] disorder, disorder, 12:32:00 PM EDT Hospital recurrent, recurrent, moderate moderate Results ID Date Data Source [id number] 06/28/2020 07:53:00 PM EDT [facility] Name Value Range Interpretation Code Description Data Qing rce(s) Supporting Document(s ) COV2 [facility] This lab was ordered by MEGHAN zuniga nd reported by Léa et Léo. ID Date Data Source [id number] 04/19/2020 07:39:00 PM EDT [facility] Name Value Range Interpretation Code Description Data Qing rce(s) Supporting Document(s ) COV2 [facility] This lab was ordered by [facility] and reported by Léa et Léo. Procedure Vital Signs ID Date Data Source UNK Name Value Range Interpretation Code Description Data Source(s) Diastolic blood 73 mmHg 73 mmHg [facility] Systolic blood 122 mmHg 122 mmHg [facility] Respiratory rate 18 bpm 18 bpm [facility] Heart rate 86 bpm 86 bpm [facility] Diastolic blood 67 mmHg 67 mmHg [facility] Systolic blood 120 mmHg 120 mmHg [facility] Respiratory rate 18 bpm 18 bpm [facility] Heart rate 73 bpm 73 bpm [facility] Body temperature 97.7 Fahrenheit 97.7 Fahrenhei t [facility] Diastolic blood 61 mmHg 61 mmHg [facility] Systolic blood 121 mmHg 121 mmHg [facility] Respiratory rate 18 bpm 18 bpm [facility] Heart rate 70 bpm 70 bpm [facility] Diastolic blood 67 mmHg 67 mmHg [facility] Systolic blood 115 mmHg 115 mmHg [facility] Respiratory rate 18 bpm 18 bpm [facility] Heart rate 75 bpm 75 bpm [facility] Body temperature 97.5 Fahrenheit 97.5 Fahrenhei t [facility] Diastolic blood 80 mmHg 80 mmHg [facility] Systolic blood 129 mmHg 129 mmHg [facility] Respiratory rate 20 bpm 20 bpm [facility] Heart rate 102 bpm 102 bpm [facility] Body weight 158 lbs 158 lbs [facility] Diastolic blood 73 mmHg 73 mmHg [facility] Systolic blood 132 mmHg 132 mmHg [facility] Respiratory rate 20 bpm 20 bpm [facility] Heart rate 93 bpm 93 bpm [facility] Body temperature 98.0 Fahrenheit 98.0 Fahrenhei t [facility] Diastolic blood 73 mmHg 73 mmHg [facility] Systolic blood 116 mmHg 116 mmHg [facility] Respiratory rate 18 bpm 18 bpm [facility] Heart rate 66 bpm 66 bpm [facility] Body temperature 98.3 Fahrenheit 98.3 Fahrenhei t [facility] Diastolic blood 80 mmHg 80 mmHg [facility] Systolic blood 119 mmHg 119 mmHg [facility] Respiratory rate 18 bpm 18 bpm [facility] Heart rate 88 bpm 88 bpm [facility] Diastolic blood 71 mmHg 71 mmHg [facility] Systolic blood 121 mmHg 121 mmHg [facility] Respiratory rate 18 bpm 18 bpm [facility] Heart rate 78 bpm 78 bpm [facility] Body temperature 97.8 Fahrenheit 97.8 Fahrenhei t [facility] Diastolic blood 71 mmHg 71 mmHg [facility] Systolic blood 133 mmHg 133 mmHg [facility] Respiratory rate 18 bpm 18 bpm [facility] Heart rate 86 bpm 86 bpm [facility] Diastolic blood 70 mmHg 70 mmHg [facility] Systolic blood 131 mmHg 131 mmHg [facility] Respiratory rate 18 bpm 18 bpm [facility] Heart rate 96 bpm 96 bpm [facility] Body temperature 97.1 Fahrenheit 97.1 Fahrenhei t [facility] Diastolic blood 78 mmHg 78 mmHg [facility] Systolic blood 133 mmHg 133 mmHg [facility] Respiratory rate 20 bpm 20 bpm [facility] Heart rate 91 bpm 91 bpm [facility] Diastolic blood 78 mmHg 78 mmHg [facility] Systolic blood 133 mmHg 133 mmHg [facility] Respiratory rate 20 bpm 20 bpm [facility] Heart rate 91 bpm 91 bpm [facility] Diastolic blood 59 mmHg 59 mmHg [facility] Systolic blood 125 mmHg 125 mmHg [facility] Respiratory rate 20 bpm 20 bpm [facility] Heart rate 85 bpm 85 bpm [facility] Body temperature 97.8 Fahrenheit 97.8 Fahrenhei t [facility] Diastolic blood 76 mmHg 76 mmHg [facility] Systolic blood 134 mmHg 134 mmHg [facility] Respiratory rate 18 bpm 18 bpm [facility] Heart rate 88 bpm 88 bpm [facility] Diastolic blood 74 mmHg 74 mmHg [facility] Systolic blood 124 mmHg 124 mmHg [facility] Respiratory rate 18 bpm 18 bpm [facility] Heart rate 94 bpm 94 bpm [facility] Body temperature 96.8 Fahrenheit 96.8 Fahrenh t [facility]
[2020-09-04] MEDS ORDERED: FAMOTIDINE 20 MG TABLET PO ONE (18:17)
[2020-09-04] MEDS ORDERED: predniSONE 20 MG TABLET (UD) PO ONE (18:17)
--- NOTE | 2020-09-04 18:25 | PDOC ---
History of Present Illness - General Chief Complaint: Rash Stated Complaint: ALLERGIC REACTION Time Seen by Provider: 09/04/20 18:05 History Source: Patient Exam Limitations: No Limitations - History of Present Illness Initial Comments: 09/04/20 18:18 Patient is a 29-year-old female who presents to the ED with complaint of a rash on her diffuse body that started last night after work. 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 She states she has no new detergents, foods, contacts, deodorants, washes, soaps. The patient states that the rash is itchy but not incredibly itchy. She denies any difficulty breathing, swollen lips, swollen tongue or throat. She took Benadryl today at 9 AM and then again about 45 minutes ago. She took 50 mg of Benadryl 45 minutes ago. The patient denies any known allergies. She denies any past medical history. Past History - Medical History Allergies/Adverse Reactions: Allergies Allergy/AdvReac Type Severity Reaction Status Date / Time No Known Allergies Allergy Verified 09/04/20 18:00 Home Medications: Ambulatory Orders Epinephrine [Epipen 2-Nikhil] 0.3 mg IJ ONCE #1 auto.injct 09/04/20 Famotidine [Pepcid -] 20 mg PO BID 7 Days #14 tablet 09/04/20 Fexofenadine HCl [Karen Allergy] 180 mg PO DAILY #7 tablet 09/04/20 predniSONE [Deltasone -] 60 mg PO DAILY 4 Days #12 tablet 09/04/20 COPD: No - Surgical History Abdominal Surgery: Yes (GASTRIC SLEEVE) - Reproductive History Is Patient Now?: No Therapeutic (s) & number: No - Immunization History Immunization Up to Date: Yes - Psycho-Social/Smoking History Smoking History: Never smoked Have you smoked in the past 12 months: Yes Number of Cigarettes Smoked Daily: 3 'Breaking Loose' booklet given: 07/12/18 Review of Systems - Review of Systems Comments:: 09/04/20 18:20 - Review of Systems Able to Perform ROS?: Yes Constitutional: No: Fever, Chills, Loss of Appetite, Night Sweats, Weakness HEENTM: No: Eye Pain, Vision changes, Ear Pain, Throat Pain, Throat Swelling, Mouth Pain, Difficulty Swallowing Respiratory: No: Cough, Shortness of Breath, Wheezing, Sputum Production Cardiac (ROS): No: Chest Pain, Chest Tightness, Palpitations, Irregular Heart Beat, Edema ABD/GI: No: Nausea, Vomiting, Abdominal Pain, Diarrhea : No Dysuria, No Hematuria, No Frequency, No Urgency Musculoskeletal: No: Muscle Pain, Back Pain, Joint Pain, Muscle Weakness, Neck Pain Integumentary: No: Lesions, positive: Rash Neurological: No: Headache, Numbness, Tingling, Weakness, Speech Difficulties *Physical Exam - Vital Signs Last Vital Signs Temp Pulse Resp BP Pulse Ox 123 H 18 141/88 100 09/04/20 17:52 09/04/20 17:52 09/04/20 17:52 09/04/20 17:52 - Physical Exam 09/04/20 18:20 - Physical Exam General Appearance: Nourished, Appropriately Dressed, No Distress HEENT: EOMI, Normal Voice, No Pharyngeal Erythema, No Muffled/Hoarse voice, No Tonsillar Exudate, No Tonsillar Erythema, No Nasal Congestion, No Rhinorrhea, Hearing Grossly Normal, TMs Normal, No TM Bulging, No TM Dullness, No TM Erythema; no mouth edema appreciated. Uvula midline and without edema. Airway patent. No stridor. Lips normal without edema. Neck: Supple, No Lymphadenopathy (R), No Lymphadenopathy (L), No Rigidity, No Decreased range of motion Respiratory/Chest: Lungs Clear, Normal Breath Sounds. No Respiratory Distress, No Accessory Muscle Use; good air entry bilaterally. No wheezes/rales/rhonchi. No stridor. Cardiovascular: Regular Rhythm, Regular Rate, S1, S2 Gastrointestinal/Abdominal: Normal Bowel Sounds, Soft. Non-tender, No Guarding, No Rebound, No Rigidity Musculoskeletal: Normal Inspection. No Decreased Range of Motion Extremity: Normal Capillary Refill, Normal Inspection Integumentary: Normal Color, Dry. Urticarial-like rash appreciated to the diffuse face, anterior chest and bilateral upper extremities. No vesicles or pustules appreciated. 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 Plan: -Patient took 50 mg of Benadryl 45 minutes ago -We will give the patient Pepcid and prednisone in the ED -Will discharge the patient with a prescription for Pepcid, prednisone, Karen and an EpiPen. -She can follow-up with her primary care doctor within 1 to 2 days for repeat evaluation. Referral to dermatology has been given for possible allergy testing. -The patient understands and agrees to treatment plan and she is stable for discharge. Discharge - Discharge Information Problems reviewed: Yes Clinical Impression/Diagnosis: Urticaria Condition: Stable Disposition: HOME - Additional Discharge Information Prescriptions: Fexofenadine HCl [Karen Allergy] 180 mg PO DAILY #7 tablet predniSONE [Deltasone -] 60 mg PO DAILY 4 Days #12 tablet Epinephrine [Epipen 2-Nikhil] 0.3 mg IJ ONCE #1 auto.injct Famotidine [Pepcid -] 20 mg PO BID 7 Days #14 tablet - Follow up/Referral Referrals: Giuliana Ramos MD [Staff Physician] - - Patient Discharge Instructions Patient Printed Discharge Instructions: DI for Hives Additional Instructions: Take the medication as prescribed. Be sure to follow-up with your primary doctor within 1 to 2 days for repeat evaluation. 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 Avoid any new foods or contacts to help determine what may be causing this allergic reaction. - Post Discharge Activity Work/Back to School Note: Back to Work
[2020-09-04] MEDS ORDERED: FAMOTIDINE 20 MG TABLET ONE (18:26)
[2020-09-04] MEDS ORDERED: predniSONE 20 MG TABLET (UD) ONE (18:26)
== END 2020-09-04 18:31 | disposition home or self-care (01) ==
LOC: JERFT 17:48
DX: L50.0 Allergic urticaria (principal)
CPT/HCPCS: 99283-25

== ENCOUNTER 2021-02-14 08:57 | Emergency (ER) | payer OTHER ==
[2021-02-14 09:23] VITALS: BP 150/83; PULSE 82; TEMP 97.8; BMI 30.2
[2021-02-14] MEDS ORDERED: ACETAMINOPHEN 500 MG TABLET (FP) PO ONE (09:56)
[2021-02-14] MEDS ORDERED: ACETAMINOPHEN 325 MG TABLET (FP) ONE (10:04)
[2021-02-14] MEDS ORDERED: DIPHTH,PERTUSS(ACELL),TET 0.5 ML DISP.SYRIN IM ONE ×3 (10:22→13:09)
== END 2021-02-14 13:35 | disposition home or self-care (01) ==
LOC: JER 08:57
PROC: 3E0234Z Introduction of Serum, Toxoid and Vaccine into Muscle, Percutaneous Approach (ICD-10-PCS; principal; 2021-02-14)
DX: S00.83XA Contusion of other part of head, initial encounter (principal)
CPT/HCPCS: 70450-TC; 70486-TC; 72125-TC; 73030-TC-LT-FY; 90715; 99285-25